=== PATIENT | female | born 2000 | race Caucasian/White ===

== ENCOUNTER 2020-05-11 18:14 | Emergency (ER) | payer OTHER ==
[~2020-05-11] VITALS: Ht 157.5 cm; Wt 50.8 kg
[2020-05-11 18:19] VITALS: BP 113/74
[2020-05-11] MEDS ORDERED: IBUPROFEN 400 MG TAB PO ONE (19:20)
[2020-05-11] MEDS ORDERED: ONDANSETRON 4 MG ODT PO ONE (19:20)
[2020-05-11] MEDS ORDERED: ACETAMINOPHEN 325 MG TAB PO ONE (19:20)
--- NOTE | 2020-05-11 19:37 | NUR ---
PT TAKEN TO CHAIR C
[2020-05-11 20:20] VITALS: BP 113/74
--- NOTE | 2020-05-11 20:42 | NUR ---
Patient discharged with v/s stable. Written and verbal after care instructions given and explained. Patient alert, oriented and verbalized understanding of instructions. Ambulatory with steady gait. All questions addressed prior to discharge. ID band removed. Patient advised to follow up with PMD. Rx of motrin and zofran given. Patient educated on indication of medication including possible reaction and side effects. Opportunity to ask questions provided and answered.
== END 2020-05-11 20:42 | disposition home or self-care (01) ==
LOC: MED 18:14
DX: S09.90XA Unspecified injury of head, initial encounter (principal); R41.0 Disorientation, unspecified; R11.0 Nausea; W22.03XA Walked into furniture, initial encounter; Y93.89 Activity, other specified; Y92.89 Other specified places as the place of occurrence of the external cause; Y99.8 Other external cause status
CPT/HCPCS: 81025; 99284; Q0162